=== PATIENT | female | born 1950 | race Caucasian/White ===

== ENCOUNTER 2022-09-02 11:08 | Emergency (ER) | payer MEDICARE, SELFPAY ==
[2022-09-02] VITALS (8 sets, daily range): BP systolic 145–166; BP diastolic 68–74; PULSE 64–74; RESP 14–27; TEMP 36.6; O2SAT 97–99; BMI 18.8
--- NOTE | 2022-09-02 11:15 | DI.CT.S_ITS ---
PROCEDURE: CT HEAD/BRAIN WO CON INDICATIONS: Trauma TECHNIQUE: Noncontrast 4.5 mm thick angled axial sections acquired from the foramen magnum to the vertex, with coronal and sagittal reformats. For radiation dose reduction, the following was used: automated exposure control, adjustment of mA and/or kV according to patient size. COMPARISON: [facility], CT, CT CERVICAL SPINE WO CON, 09/02/2022, 11:44. FINDINGS: Image quality: Excellent. CSF spaces: Basal cisterns are patent. No extra-axial fluid collections. The ventricles are symmetric in size and shape. Brain: No intracranial bleeds or masses. There is cerebral volume loss for age, with resultant ventricular and sulcal prominence. There are periventricular and deep white matter chronic small vessel ischemic changes. There is intracranial internal carotid artery atherosclerosis. Skull and face: Calvarium and visualized facial bones appear intact, without suspicious lesions. Sinuses: Visualized sinuses and mastoids are clear. IMPRESSION: 1. No acute intracranial abnormalities. Dictated by: Raymond Jay M.D. on 09/02/2022 at 11:52 Approved by: Raymond Jay M.D. on 09/02/2022 at 11:53
--- NOTE | 2022-09-02 11:15 | DI.RAD.S_ITS ---
PROCEDURE: XR HAND RT MIN 3V INDICATIONS: fall w/ LOC, right hand wound TECHNIQUE: 3 views of the hand(s) acquired. COMPARISON: None. FINDINGS: Bones: No fractures or dislocations. Carpal bones are normally aligned. No suspicious bony lesions. Partially visualized distal radial fixation. Soft tissues: No suspicious soft tissue calcifications. IMPRESSION: No visualized acute fracture or dislocation. However, if clinical concern and/or pain persist, short interval imaging followup in 7-10 days is recommended, as occult injury cannot be definitively excluded. Dictated by: Leah Lilly M.D. on 09/02/2022 at 15:03 Approved by: Leah Lilly M.D. on 09/02/2022 at 15:03
--- NOTE | 2022-09-02 11:15 | DI.CT.S_ITS ---
PROCEDURE: CT CERVICAL SPINE WO CON INDICATIONS: Trauma TECHNIQUE: Noncontrast 3 mm thick sections acquired from the skull base to the T4 level. Sagittal and coronal reformats were then constructed. For radiation dose reduction, the following was used: automated exposure control, adjustment of mA and/or kV according to patient size. COMPARISON: None. FINDINGS: Image quality: Excellent. Bones: No fractures or dislocations. Degenerative disc and facet disease, most pronounced at C5-C6 and C6-C7. Visualized superior ribs are intact. Soft tissues: Prevertebral soft tissues are normal in thickness. No paravertebral hematomas. No apical pneumothoraces. IMPRESSION: 1. No acute cervical spine fracture. 2. Degenerative changes are noted. Dictated by: Raymond Jay M.D. on 09/02/2022 at 11:53 Approved by: Raymond Jay M.D. on 09/02/2022 at 11:55
[2022-09-02 11:44] LABS: Add Manual Diff / Slide Review NO; Basophils Absolute Auto 100 /uL (0-100); Basophils Percent Auto 0.8 % (0-2); Eosinophils Absolute Auto 200 /uL (0-450); Eosinophils Percent Auto 3.4 % (2-4); Hematocrit 37.9 % (36-46); Hemoglobin 12.8 g/dL (12.0-16.0); Lymphocytes Absolute Auto 1600 /uL (1100-4500); Lymphocytes Percent Auto 25.8 % (25-40); Mean Corpuscular HGB Conc 33.7 % (30-36); Mean Corpuscular Hemoglobin 29.8 PG (26-34); Mean Corpuscular Volume 88.5 fL (80-100); Monocytes Absolute Auto 500 /uL (0-900); Monocytes Percent Auto 8.4 % (3-14); Neutrophils Absolute Auto 3900 /uL (1500-7000); Neutrophils Percent Auto 61.6 % (50-75); Platelet Count 242 X10^3/uL (150-400); Red Blood Cell Count 4.28 X10^6/uL (4.0-5.2); White Blood Cell Count 6.3 X10^3/uL (4.5-11.0)
[2022-09-02 11:47] LABS: Prothrombin Time 11.9 SECONDS (10.1-12.7)
[2022-09-02 11:50] LABS: PTT Partial Thromboplastin Tim 32 SECONDS (26-36)
[2022-09-02 11:53] LABS: Lactate (Lactic Acid) 1.1 mmol/L (0.7-2.1)
[2022-09-02] MEDS: ACETAMINOPHEN 325 MG TABLET 975 MG PO (12:08)
[2022-09-02 12:26] LABS: Troponin I < 0.012 ng/mL (0.01-0.034)
[2022-09-02 12:31] LABS: Alanine Aminotransferase 23 IU/L (<35); Albumin 4.4 g/dL (3.5-5.0); Albumin Globulin Ratio 1.4 (1.0-2.8); Alkaline Phosphatase 53 U/L (38-126); Aspartate Aminotransferase 41 IU/L (14-36); BUN Creatinine Ratio 19.4 (6-22); Bilirubin Total 0.7 mg/dL (0.2-1.3); Blood Urea Nitrogen 19 mg/dL (7-17); Calcium 9.3 mg/dL (8.4-10.2); Carbon Dioxide 27 mmol/L (22-32); Chloride 103 mmol/L (98-107); Creatine Kinase 103 U/L (30-135); Estimated Glomerular Filt Rate > 60 mL/min (>60); Ethanol (ETOH) < 10 mg/dL; Globulin 3.1 g/dL (1.7-4.1); Glucose 88 mg/dL (80-110); HEMOLYSIS 86 (0-50); Lipase 171 U/L (23-300); Sodium 138 mmol/L (137-145); Total Protein 7.5 g/dL (6.3-8.2)
[2022-09-02 12:32] LABS: Potassium 4.7 mmol/L (3.4-5.1)
[2022-09-02 12:39] LABS: Ur Creatinine Normal (Normal); Ur Specific Gravity Normal (Normal)
[2022-09-02 12:40] LABS: UR Morphine/Opiate cutoff 300 Negative (Negative); Urine Amphetamines Negative (Negative); Urine Barbiturates Negative (Negative); Urine Benzodiazepines Negative (Negative); Urine Cocaine Negative (Negative); Urine MDMA Negative (Negative); Urine Methadone Negative (Negative); Urine Methamphetamines Negative (Negative); Urine Oxycodone Negative (Negative); Urine Phencyclidine Negative (Negative); Urine Tetrahydrocannabinol Positive (Negative); Urine Tricyclic Antidepressant Negative (Negative); Urine pH Normal (Normal)
[2022-09-02 13:26] LABS: Appearance Urine UA CLEAR; Bilirubin Urine UA NEGATIVE (NEGATIVE); Color Urine UA YELLOW; Glucose Urine UA NEGATIVE (Negative); Ketones Urine UA NEGATIVE (NEGATIVE); Leukocyte Esterase Urine UA NEGATIVE (NEGATIVE); Nitrite Urine UA NEGATIVE (Negative); Occult Blood Urine UA TRACE-INTACT (Negative); Protein Urine UA NEGATIVE (Negative); Specific Gravity Urine UA 1.025 (1.000-1.035); Urobilinogen Urine UA 0.2 E.U./dL (0.2)
[2022-09-02 13:35] LABS: Bacteria Urine None Seen; Culture Indicated Urine Cult Not Indicated; RBC Urine 0-1/HPF (0-5/HPF); Squamous Epithelial Cell Urine 0-1 /HPF (0-5/HPF); WBC Urine 0-1/HPF (0-5/HPF)
--- NOTE | 2022-09-02 13:48 | ED_ITS ---
HPI - Trauma General Chief Complaint: Trauma Stated Complaint: fell half an hour ago,passed out Time Seen by Provider: 09/02/22 12:35 Source: patient and family Mode of arrival: Ambulatory Limitations: no limitations History of Present Illness HPI narrative: This is a 72-year-old female history of dyslipidemia who was hiking today she was walking in a parking lot tripped fell hit her head. Questionable loss of c onsciousness of 1-2 minutes. Individuals with her were not standing right next to her were across the parking lot. But they states she was very repetitive. Patient does not think she had loss of consciousness. She does have some abrasions and dried blood on her ear and has some skin tears on her left hand. Patient denies any headache no neck pain. No vision changes. No dizziness. No nausea or vomiting. No chest pain, no shortness of breath, no GI or urinary symptoms. No loss of bowel or bladder control. No numbness, tingling or weakness. Patient ambulated the facility for evaluation. She is ambulated several times in the department. Patient is on pravastatin, vitamins and testo sterone. She shows no aspirin, Plavix or other blood thinners. She has a prior hip replaced, prior orthopedic repair on her wrist. Denies allergies to drugs. She states her tetanus is up-to-date. No tobacco, alcohol, no recreational drugs other than THC nightly for sleep. She follows with a Dr. Judith Turpin in [facility] where she lives. She and her family are anticipating flying back to [place] at 8:00 a.m. this evening. Related Data Allergies Allergy/AdvReac Type Severity Reaction Status Date / Time No Known Drug Allergies Allergy Verified 09/02/22 11:21 Review of Systems Review of Systems ROS Unobtainable: All systems reviewed & are unremarkable except as noted in HPI and below Patient History Social History Smoking Status: Never smoker Smoking Status: Never smoker alcohol intake frequency: 0-2 drinks per day Substance Use Type: does not use Exam Narrative Exam Narrative: GEN: Patient appears in mild distress. HEAD: No evidence of trauma, no raccoon/Mckay sign. NECK: Nontender, painless range of motion, trachea midline Negative Nexus criteria, no midline line tenderness, distracting injury, had reported at seen but not here altered mental status, no neuro deficit, recent EtOH. EYES: PERRLA, EOMI ENT: External inspection normal except for some abrasions scabbed blood on her right ear, no lacerations, trachea is midline, TM's are normal no hemotypanum, Nares are clear, no septal hematoma, no dental or oral injury, airway is normal and with normal occlusion, No bony tenderness RESP: Chest is nontender and has symmetric movement, no ecchymosis, breath sounds are normal no crackles, wheezes or rales CVS: Heart sounds are normal, no murmur noted, No JVD. ABG/GI: Nontender, soft, normal bowel sounds, no distention, no organomegaly, pelvic rock is negative NEURO: Oriented AOx3, neuro is grossly intact, sensation and motor is normal all 4 extremities moving, cranial nerves II through XII are intact, GCS is 15 PSYCH: Normal mood and affect SKIN: Intact except for left hand patient has several small skin tears over the distal wrist and dorsum of the hand, superficial skin tears not requiring sutures warm and dry, no crepitus and without decubitus BACK: No CVA tenderness, no vertebral tenderness, no step-off's, no crepitus EXT: Atraumatic other than above, no bony tenderness. Full range of motion. Patient does not have any tenderness or difficulty with movement on examination of the hand or other extremities., hips are nontender, no pedal edema, normal color and temperature, normal range of motion of extremities with normal tendon exam, 2+ pulses in all four extremities Initial Vital Signs Initial Vital Signs: Vital Signs Pulse Rate 74 09/02/22 11:15 Respiratory Rate 17 09/02/22 11:15 Pulse Oximetry 98 09/02/22 11:15 Scores GCS [place] coma scale eye opening: Spontaneous [place] coma scale verbal response: Orientated [place] coma scale motor response: Obey commands [place] coma scale total score: 15 Nexus Score for C-Spine Focal Neurologic deficit present: No Midline spinal tenderness present: No Altered level of conciousness present: No Intoxication present: No Distracting Injury Present: No Nexus Criteria for C-spine: 0 Course Orders Ordered: ED Orders 09/02/22 11:14 EKG-12 Lead Stat 09/02/22 11:15 CT cervical spine wo con Stat CT head/brain wo con Stat XR hand RT min 3V Stat 09/02/22 11:21 Complete Blood Count AUTO DIFF Stat Comprehensive Metabolic Panel Stat Ethanol (ETOH) Stat Lactate (Lactic Acid) Stat Lipase Stat PTT Partial Thromboplastin [place] Stat Prothrombin Time INR Stat Troponin & CK Cardiac Panel Stat 09/02/22 12:20 Urine Drug Screen, Rapid Stat 09/02/22 12:47 Urinalysis and Microscopic Stat Discontinued Medications Acetaminophen (Acetaminophen 325 Mg Tablet) 975 mg PO NOW ONE Stop: 09/02/22 12:06 Last Admin: 09/02/22 12:08 Dose: 975 mg Documented By: GUI Vital Signs Vital signs: Vital Signs - 8 hr 09/02/22 11:30 09/02/22 12:00 09/02/22 12:24 Pulse Rate 66 67 Respiratory Rate 27 H 15 Blood Pressure 153/70 H Pulse Oximetry 99 99 Oxygen Delivery Method 09/02/22 12:24 09/02/22 12:30 09/02/22 12:30 Pulse Rate 65 65 Respiratory Rate 16 14 Blood Pressure 145/68 H Pulse Oximetry 98 98 Oxygen Delivery Method 09/02/22 12:35 09/02/22 14:13 Pulse Rate 64 Respiratory Rate 16 Blood Pressure 166/74 H Pulse Oximetry 97 Oxygen Delivery Method Room Air MDM - Trauma Lab Data 09/02/22 11:21 09/02/22 11:21 Labs: Lab Results 09/02/22 09/02/22 09/02/22 Range/Units 11:21 11:21 11:21 WBC 6.3 (4.5-11.0) X10^3/uL RBC 4.28 (4.0-5.2) X10^6/uL Hgb 12.8 (12.0-16.0) g/dL Hct 37.9 (36-46) % MCV 88.5 (80-100) fL MCH 29.8 (26-34) PG MCHC 33.7 (30-36) % RDW 16.0 H (11.6-14.8) % Plt Count 242 (150-400) X10^3/uL Neut % (Auto) 61.6 (50-75) % Lymph % (Auto) 25.8 (25-40) % [place] % (Auto) 8.4 (3-14) % Eos % (Auto) 3.4 (2-4) % Baso % (Auto) 0.8 (0-2) % Neut # (Auto) 3900 (6807-9472) /uL Lymph # (Auto) 1600 (5436-6960) /uL [place] # (Auto) 500 (0-900) /uL Eos # (Auto) 200 (0-450) /uL Baso # (Auto) 100 (0-100) /uL PT 11.9 (10.1-12.7) SECONDS INR 1.0 (0.9-1.3) APTT 32 (26-36) SECONDS Sodium 138 (137-145) mmol/L Potassium 4.7 (3.4-5.1) mmol/L Chloride 103 (98-107) mmol/L Carbon Dioxide 27 (22-32) mmol/L BUN 19 H (7-17) mg/dL Creatinine 0.98 (0.52-1.04) mg/dL Estimated GFR > 60 (>60) mL/min BUN/Creatinine Ratio 19.4 (6-22) Glucose 88 (80-110) mg/dL Lactate (0.7-2.1) mmol/L Calcium 9.3 (8.4-10.2) mg/dL Total Bilirubin 0.7 (0.2-1.3) mg/dL AST 41 H (14-36) IU/L ALT 23 (<35) IU/L Alkaline Phosphatase 53 (38-126) U/L Total Creatine Kinase 103 (30-135) U/L Troponin I < 0.012 (0.01-0.034) ng/mL Total Protein 7.5 (6.3-8.2) g/dL Albumin 4.4 (3.5-5.0) g/dL Globulin 3.1 (1.7-4.1) g/dL Albumin/Globulin Ratio 1.4 (1.0-2.8) Lipase 171 (23-300) U/L Urine Color Urine Appearance Urine pH (4.5-8.0) Ur Specific [place] (1.000-1.035) Urine Protein (Negative) Urine Glucose (UA) (Negative) g/dL Urine Ketones (NEGATIVE) Urine Occult Blood (Negative) Urine Nitrate (Negative) Urine Bilirubin (NEGATIVE) Urine Urobilinogen (0.2) E.U./dL Ur Leukocyte Esterase (NEGATIVE) Urine RBC (0-5/HPF) Urine WBC (0-5/HPF) Ur Squamous Epith Cells (0-5/HPF) Urine Bacteria (None) Ur Culture Indicated? U Opiates 300ng/mL cut (Negative) Ur Oxycodone Screen (Negative) Urine Methadone Screen (Negative) Ur Barbiturates Screen (Negative) U Tricyclic Antidepress (Negative) Ur Phencyclidine Scrn (Negative) Ur Amphetamines Screen (Negative) U Methamphetamines Scrn (Negative) Ur MDMA Scrn (Ecstasy) (Negative) U Benzodiazepines Scrn (Negative) Urine Cocaine Screen (Negative) U Marijuana (THC) Screen (Negative) Ethyl Alcohol < 10 ( - 10) mg/dL 09/02/22 09/02/22 09/02/22 Range/Units 11:21 12:20 12:47 WBC (4.5-11.0) X10^3/uL RBC (4.0-5.2) X10^6/uL Hgb (12.0-16.0) g/dL Hct (36-46) % MCV (80-100) fL MCH (26-34) PG MCHC (30-36) % RDW (11.6-14.8) % Plt Count (150-400) X10^3/uL Neut % (Auto) (50-75) % Lymph % (Auto) (25-40) % [place] % (Auto) (3-14) % Eos % (Auto) (2-4) % Baso % (Auto) (0-2) % Neut # (Auto) (8529-0662) /uL Lymph # (Auto) (5220-0950) /uL [place] # (Auto) (0-900) /uL Eos # (Auto) (0-450) /uL Baso # (Auto) (0-100) /uL PT (10.1-12.7) SECONDS INR (0.9-1.3) APTT (26-36) SECONDS Sodium (137-145) mmol/L Potassium (3.4-5.1) mmol/L Chloride (98-107) mmol/L Carbon Dioxide (22-32) mmol/L BUN (7-17) mg/dL Creatinine (0.52-1.04) mg/dL Estimated GFR (>60) mL/min BUN/Creatinine Ratio (6-22) Glucose (80-110) mg/dL Lactate 1.1 (0.7-2.1) mmol/L Calcium (8.4-10.2) mg/dL Total Bilirubin (0.2-1.3) mg/dL AST (14-36) IU/L ALT (<35) IU/L Alkaline Phosphatase (38-126) U/L Total Creatine Kinase (30-135) U/L Troponin I (0.01-0.034) ng/mL Total Protein (6.3-8.2) g/dL Albumin (3.5-5.0) g/dL Globulin (1.7-4.1) g/dL Albumin/Globulin Ratio (1.0-2.8) Lipase (23-300) U/L Urine Color Yellow Urine Appearance Clear Urine pH 6.0 (4.5-8.0) Ur Specific [place] 1.025 (1.000-1.035) Urine Protein Negative (Negative) Urine Glucose (UA) Negative (Negative) g/dL Urine Ketones Negative (NEGATIVE) Urine Occult Blood Trace-intact (Negative) Urine Nitrate Negative (Negative) Urine Bilirubin Negative (NEGATIVE) Urine Urobilinogen 0.2 (0.2) E.U./dL Ur Leukocyte Esterase Negative (NEGATIVE) Urine RBC 0-1/hpf (0-5/HPF) Urine WBC 0-1/hpf (0-5/HPF) Ur Squamous Epith Cells 0-1 /hpf (0-5/HPF) Urine Bacteria None seen (None) Ur Culture Indicated? Cult not indicated U Opiates 300ng/mL cut Negative (Negative) Ur Oxycodone Screen Negative (Negative) Urine Methadone Screen Negative (Negative) Ur Barbiturates Screen Negative (Negative) U Tricyclic Antidepress Negative (Negative) Ur Phencyclidine Scrn Negative (Negative) Ur Amphetamines Screen Negative (Negative) U Methamphetamines Scrn Negative (Negative) Ur MDMA Scrn (Ecstasy) Negative (Negative) U Benzodiazepines Scrn Negative (Negative) Urine Cocaine Screen Negative (Negative) U Marijuana (THC) Screen Positive H (Negative) Ethyl Alcohol ( - 10) mg/dL Imaging Data CT scan - head: Radiologist's Impression: Kaitlin Lee??72??F??1950 ? Allergy/Adv: No Known Drug Allergies Close Head CT (Signed) Raymond Jay - 09/02/22 Hand X-Ray 09/02/[address] (Signed) Raymond Jay - 09/02/22 Launch?Image [address] [address] [address] Scan Report Signed Patient: Kaitlin Lee MR#: [id number] : 1950 Acct:[id number] Age/Sex: 72 / F Date of Service: 09/02/22 Loc: ED Accession Number: [id number] ?? Procedure: CT head/brain wo con Ordering Provider: Corrina Miller D.O. PROCEDURE:? CT HEAD/BRAIN WO CON ? INDICATIONS:? Trauma ? TECHNIQUE:? Noncontrast 4.5 mm thick angled axial sections acquired from the foramen magnum to the vertex, with coronal and sagittal reformats.? For radiation dose reduction, the following was used:? automated exposure control, adjustment of mA and/or kV according to patient size.? ? COMPARISON:? [facility], CT, CT CERVICAL SPINE WO CON, 09/02/2022, 11:44. ? FINDINGS:? Image quality:? Excellent.? ? CSF spaces:? Basal cisterns are patent.? No extra-axial fluid collections.? The ventricles are symmetric in size and shape.? ? Brain:? No intracranial bleeds or masses.? There is cerebral volume loss for age, with resultant ventricular and sulcal prominence.? There are periventricular and deep white matter chronic small vessel ischemic changes.? There is intracranial internal carotid artery atherosclerosis.? ? Skull and face:? Calvarium and visualized facial bones appear intact, without suspicious lesions.? ? Sinuses:? Visualized sinuses and mastoids are clear.? ? IMPRESSION:? ? 1. No acute intracranial abnormalities. ? ? ? Dictated by: Raymond Jay M.D. on 09/02/2022 at 11:52 ? ? Approved by: Raymond Jay M.D. on 09/02/2022 at 11:53?? CT - cervical spine: Radiologist's Impression: Close Head CT (Signed) Raymond Jay - 09/02/22 Hand X-Ray 09/02/[address] (Signed) Raymond Jay - 09/02/22 Launch?[address] [address] [address] Scan Report Signed Patient: Kaitlin Lee MR#: [id number] : 1950 Acct:[id number] Age/Sex: 72 / F Date of Service: 09/02/22 Loc: ED Accession Number: [id number] ?? Procedure: CT cervical spine wo con Ordering Provider: Corrina Miller D.O. PROCEDURE:? CT CERVICAL SPINE WO CON ? INDICATIONS:? Trauma ? TECHNIQUE:? Noncontrast 3 mm thick sections acquired from the skull base to the T4 level.? Sagittal and coronal reformats were then constructed.? For radiation dose reduction, the following was used:? automated exposure control, adjustment of mA and/or kV according to patient size.? ? COMPARISON:? None. ? FINDINGS:? Image quality:? Excellent.? ? Bones:? No fractures or dislocations.? Degenerative disc and facet disease, most pronounced at C5-C6 and C6-C7.? Visualized superior ribs are intact.? ? Soft tissues:? Prevertebral soft tissues are normal in thickness.? No paravertebral hematomas.? No apical pneumothoraces.? ? ? IMPRESSION:? ? 1. No acute cervical spine fracture. 2. Degenerative changes are noted. ? ? ? Dictated by: Raymond Jay M.D. on 09/02/2022 at 11:53 ? ? Approved by: Raymond Jay M.D. on 09/02/2022 at 11:55?? ECG Data Attestation: I personally reviewed and interpreted this ECG as follows: Interpretation: Sinus rhythm rate of 65 AL 140 QRS is 74 QTC of 420. No acute ST changes appreciated. MDM Narrative Medical decision making narrative: This is a 72-year-old female with a trip and fall witnessed patient was repetitive immediately afterwards, has returned to her normal baseline according to her and her who is at bedside. He states he was across the parking lot so he is unsure she had a loss of consciousness but she does not think so. She had head CT and C-spine secondary to repetitive this to questions initially. C-spine was included based on age. Head CT and C-spine show no acute change, bleed or fracture. Patient did have hand x-ray, she would multiple skin tears but states she is got good movement does not have any bony tenderness. She b elieves tetanus is up-to-date. Labs including CBC, CMP, coags, LFTs, troponin show AST of 41 otherwise negative in a BUN 19. UA negative, UDS shows THC, ETOH is negative. X-ray hand is negative. Skin tears were dressed. Patient has ambulated in department without issue. No syncopal episodes. Her symptoms feel much better suspect she has little bit of a concussion. Skin tears and need for follow-up was discussed with patient and family. She is supposed to fly to [place] this evening around 8:00 p.m.. Discussed with patient if she is having any persistent symptoms or feels unwell she should not fly. Discharge Plan Departure Patient Disposition: Home Clinical Impression: Concussion, Abrasion of left ear Skin tear of hand without complication Qualifiers: Encounter type: initial encounter Laterality: left Qualified Code(s): S61.412A - Laceration without foreign body of left hand, initial encounter Instructions: DI for Concussion Activity Restrictions/Additional Instructions: Follow-up for recheck if you have any persistent symptoms. Do not fly if you are feeling worse or having any new or concerning symptoms before your flight this evening. Wound Care: Keep wound(s) clean and dry. Wash daily with soap and water only. You may use topical triple antibiotic o intment to the affected areas as needed. If wound condition worsens (increased/expanding redness, developing fluid blisters, or worsening pain), either contact your doctor for an urgent re-assessment , or return to the Emergency Department. Return to the Emergency Department for any new or worsening symptoms. Return if fever greater than 100.4 Fahrenheit, increased swelling, increasing pain or worsening symptoms such as increased discharge or spreading redness. Severe headaches, new vision changes, new neck or back pain, chest pain, shortness of breath, persistent vomiting, new numbness, tingling or weakness or other new or concerning changes. Stand Alone Forms: Patient Portal/API
== END 2022-09-02 14:24 | disposition home or self-care (01) ==
PROVIDERS: Emergency Provider Emergency Medicine
DX: S06.0X0A Concussion without loss of consciousness, initial encounter (principal); S00.412A Abrasion of left ear, initial encounter; S61.412A Laceration without foreign body of left hand, initial encounter; W18.30XA Fall on same level, unspecified, initial encounter
CPT/HCPCS: 70450; 72125; 73130; 80053; 80305; 80320; 81001; 82550; 83605; 83690; 84484; 85025; 85610; 85730; 93005; 99284